=== PATIENT | female | born 1990 | race Caucasian/White ===

== ENCOUNTER 2018-03-12 05:33 | Day surgery (SDC) | payer BC ==
[2018-03-05 12:13] LABS: HEMATOCRIT 40.7 % (36.0-47.0); HEMOGLOBIN 13.5 g/dL (12.0-15.5); MEAN CORPUSCULAR HEMOGLOBIN 28.5 pg (27.0-33.4); MEAN CORPUSCULAR HGB CONC 33.2 g/dL (32.0-36.0); MEAN CORPUSCULAR VOLUME 86 fl (80-97); PLATELET COUNT 202 10^3/uL (150-450); RED BLOOD COUNT 4.74 10^6/uL (3.72-5.28); RED CELL DISTRIBUTION WIDTH 14.5 % (11.5-14.0); WHITE BLOOD COUNT 8.2 10^3/uL (4.0-10.5)
[~2018-03-12 05:33] MED LIST: ACETAMINOPHEN 325 MG TABLET PO PRN; LACTATED RINGERS 1000 ML IV PRN; LIDOCAINE 0.5% INJ-PF (5 MG/ML) 50 ML SDV SUBCUT PRN; VANCOMYCIN HCL 1,000 MG in DEXTROSE 5%-WATER 250 ML IV PRN
[2018-03-12] MEDS ORDERED: FENTANYL CITRATE INJ/PF 250 MCG/5 ML AMPULE ONE (06:36)
[2018-03-12] MEDS ORDERED: LIDOCAINE 2% INJ-PF (20 MG/ML) 10 ML AMPUL ONE (06:36)
[2018-03-12] MEDS ORDERED: ACETAMINOPHEN 1,000 MG/100 ML RTUPB IV ONE (06:37)
[2018-03-12] MEDS ORDERED: PROPOFOL INJ 200 MG/20 ML VIAL IV ONE (06:37)
[2018-03-12] MEDS ORDERED: MIDAZOLAM 2 MG/2 ML INJ ONE (06:37)
[2018-03-12] MEDS ORDERED: BUPIVACAINE HCL 0.5 % INJ/PF 30 ML SDV ONE (06:51)
[2018-03-12] MEDS ORDERED: SCOPOLAMINE HYDROBROMIDE 1.5 MG PATCH.TD72 ONE (07:07)
[2018-03-12] MEDS ORDERED: FAMOTIDINE INJ/PF 20 MG/2 ML SDV IV ONE (07:08)
[2018-03-12] MEDS ORDERED: PROMETHAZINE HCL INJ 25 MG/1 ML VIAL ONE (07:33)
[2018-03-12] MEDS ORDERED: FENTANYL CITRATE INJ/PF 100 MCG/2 ML AMPUL IV PRN ×2 (08:12)
[2018-03-12] MEDS ORDERED: DIPHENHYDRAMINE HCL 50 MG/ML VIAL IV PRN (08:12)
[2018-03-12] MEDS ORDERED: MEPERIDINE HCL/PF INJ 25 MG/1 ML DISP.SYRIN IV PRN (08:12)
[2018-03-12] MEDS ORDERED: PROMETHAZINE HCL INJ 25 MG/1 ML VIAL IV PRN ×2 (08:12)
[2018-03-12] MEDS ORDERED: MORPHINE SULFATE 10 MG/ML INJ IV PRN (08:12)
[2018-03-12] MEDS ORDERED: DEXAMETHASONE SOD PHOSPHATE INJ 4 MG/1 ML VIAL ONE (09:32)
[2018-03-12] MEDS ORDERED: ONDANSETRON HCL INJ/PF 4 MG/2 ML SDV ONE (09:32)
[2018-03-12] MEDS ORDERED: ROCURONIUM BROMIDE INJ 50 MG/5 ML VIAL IV ONE (09:32)
[2018-03-12] MEDS ORDERED: FENTANYL CITRATE INJ/PF 100 MCG/2 ML AMPUL ONE ×2 (09:33→10:20)
--- NOTE | 2018-03-12 10:10 | Discharge Summary ---
Discharge Summary (SDC) - Discharge Final Diagnosis: umbilical hernia Date of Surgery: 03/12/18 Discharge Date: 03/12/18 Condition: Stable Treatment or Instructions: Discharge home, diet as tolerated, activity: No lifting greater than 10 pounds 6 weeks. Follow-up with me in 7-10 days. [place] 10/325 mg p.o. every 6 hours as needed pain. Okay to shower on Thursday. No tub baths or swimming pools 2 weeks. Referrals: TITA PERKINS PA-C [Primary Care Provider] - Discharge Diet: As Tolerated Respiratory Treatments at Home: Deep Breathing/Coughing, Incentive Spirometer Discharge Activity: No Lifting Over 10 Pounds Home Care Assistance: None Needed Report the Following to Your Physician Immediately: Shortness of Breath, Nausea , Vomiting, Yellow Skin, Fever over 101 Degrees, Unusual Bleeding, Redness, Swelling, Warmth
--- NOTE | 2018-03-12 10:18 | Operative Report ---
Nonrecallable Operative Report DATE OF SURGERY: 03/12/18 PREOPERATIVE DIAGNOSIS: 1. Symptomatic umbilical hernia. 2. Diastases recti. POSTOPERATIVE DIAGNOSIS: Same as above OPERATION: 1. Robot-assisted laparoscopic umbilical hernia repair with mesh. 2. Robot-assisted laparoscopic plication of diastases recti. SURGEON: JAMEL GARCIA ANESTHESIA: GA TISSUE REMOVED OR ALTERED: None COMPLICATIONS: None apparent ESTIMATED BLOOD LOSS: Minimal PROCEDURE: Drains/implants: 10 x [address] hernia mesh with EPS. Procedure in detail: After informed consent was obtained, the patient was brought to the operating room and laid in the supine position. The area of the abdomen was prepped and draped in a normal sterile fashion. A left upper quadrant incision was created. The 5 mm trocar and 5 mm camera were introduced into the abdominal cavity under direct laparoscopic visualization using the Optiview technique. Once this was completed a 12 mm left lateral trocar was placed, as well as an 8 mm left lower quadrant robotic trocar. The left upper quadrant 5 mm trocar was then replaced for an 8 mm robotic trocar. The robot was then brought over the patient and docked appropriately. The umbilical hernia defect was brought into view. There was incarcerated omentum within the hernia defect. This was taken down using sharp dissection and electrocautery. Once this was completed, the abdomen was surveyed. The patient had a large diastases recti. Secondary to this plication of the diastases recti was performed to facilitate hernia repair. #1 nonabsorbable V lock suture was used to plicate the patient's diastases, as well as close the umbilical hernia defect. This was done 2 with one suture starting superiorly and run inferiorly , and another suture started inferiorly and run superiorly. Once this was complete, the 10 x 15 cm ventral light hernia mesh was placed into the abdomen and apposed to the anterior abdominal wall. It was sutured into place using 2- 0 nonabsorbable V lock suture in simple running fashion. The robot was then undocked, and attention was turned to closure of the trocar sites. The 8 mm trocar sites were closed using 0 Vicryl suture in simple interrupted fashion the assistance of the Endo Close device. Trochars were then removed, and pneumoperitoneum was relieved. The 12 mm trocar site was closed under direct vision using 0 Vicryl suture in [id number] fashion. The overlying skin was closed using 4-0 Vicryl Rapide suture in subcuticular fashion. Dressings were placed, and the procedure was concluded. All sponge, instrument , and needle counts were correct 2. Condition: Stable.
[2018-03-12] MEDS: FENTANYL CITRATE INJ/PF 100 MCG/2 ML AMPUL IV PRN ×2 (10:30→10:32)
[2018-03-12] MEDS ORDERED: KETOROLAC TROMETHAMINE INJ/PF 30 MG/1 ML SDV ONE (10:44)
[2018-03-12] MEDS ORDERED: HYDROCODONE/ACETAMINOPHEN 10-325 MG TABLET PO PRN (10:58)
[2018-03-12] MEDS ORDERED: LORAZEPAM INJ 2 MG/1 ML VIAL ONE (11:03)
[2018-03-12] MEDS ORDERED: HYDROCODONE/ACETAMINOPHEN 10-325 MG TABLET ONE (12:03)
[2018-03-12] MEDS ORDERED: HYDROCODONE/ACETAMINOPHEN 5-325 MG (6 TAB/ER DISP) PO ONE (12:10)
[2018-03-12 12:52] VITALS: BP 130/78
== END 2018-03-12 13:20 | disposition home or self-care (01) ==
LOC: OROUT 05:33
PROVIDERS: ATTEND Surgery
DX: K42.0 Umbilical hernia with obstruction, without gangrene (principal); G43.909 Migraine, unspecified, not intractable, without status migrainosus; K46.9 Unspecified abdominal hernia without obstruction or gangrene; M62.08 Separation of muscle (nontraumatic), other site; Z88.0 Allergy status to penicillin
CPT/HCPCS: 49653; 49999; S2900; 36415; 750; 81025; 85027; 86850; 86900; 86901; C1781; J0131; J1100; J1885; J2060; J2250; J2405; J2550; J2704; J3010; J3370; J3490; J7060; S0028

== ENCOUNTER 2019-05-23 07:46 | Day surgery (SDC) | payer BC ==
[2019-05-20 10:48] LABS: ABSOLUTE EOSINOPHILS # (AUTO) 0.1 10^3/uL (0.0-0.6); ABSOLUTE LYMPHOCYTES (AUTO) 1.7 10^3/uL (0.5-4.7); ABSOLUTE MONOCYTES (AUTO) 0.6 10^3/uL (0.1-1.4); ABSOLUTE NEUT (AUTO) 3.6 10^3/uL (1.7-8.2); BASOPHILS % (AUTO) 0.4 % (0-2); EOSINOPHILS % (AUTO) 1.4 % (0-6); HEMATOCRIT 40.2 % (36.0-47.0); HEMOGLOBIN 13.2 g/dL (12.0-15.5); LYMPHOCYTES % (AUTO) 28.3 % (13-45); MEAN CORPUSCULAR HEMOGLOBIN 28.4 pg (27.0-33.4); MEAN CORPUSCULAR HGB CONC 32.9 g/dL (32.0-36.0); MEAN CORPUSCULAR VOLUME 86 fl (80-97); MONOCYTES % (AUTO) 9.4 % (3-13); PLATELET COUNT 211 10^3/uL (150-450); RED BLOOD COUNT 4.65 10^6/uL (3.72-5.28); RED CELL DISTRIBUTION WIDTH 13.7 % (11.5-14.0); SEGMENTED NEUTROPHILS % (AUTO) 60.5 % (42-78); TOTAL CELLS COUNTED % (AUTO) 100 %; WHITE BLOOD COUNT 5.9 10^3/uL (4.0-10.5)
[2019-05-20 10:55] LABS: APPEARANCE,URINE SLIGHTLY-CLOUDY; BILIRUBIN,URINE NEGATIVE (NEGATIVE); COLOR,URINE YELLOW; GLUCOSE, URINE NEGATIVE (NEGATIVE); KETONES,URINE NEGATIVE (NEGATIVE); LEUKOCYTE ESTERASE,URINE NEGATIVE (NEGATIVE); NITRITE,URINE NEGATIVE (NEGATIVE); PROTEIN,URINE NEGATIVE (NEGATIVE); URINE SPECIFIC GRAVITY 1.006; UROBILINOGEN,URINE NEGATIVE mg/dL (<2.0)
[2019-05-20 11:12] LABS: ANION GAP 9 (5-19); BLOOD UREA NITROGEN 11 mg/dL (7-20); CALCIUM 9.5 mg/dL (8.4-10.2); CARBON DIOXIDE 27 mmol/L (22-30); CHLORIDE 105 mmol/L (98-107); GLUCOSE 82 mg/dL (75-110); POTASSIUM 4.3 mmol/L (3.6-5.0)
[~2019-05-23 07:46] MED LIST changes: -ACETAMINOPHEN 325 MG TABLET PO PRN; -LIDOCAINE 0.5% INJ-PF (5 MG/ML) 50 ML SDV SUBCUT PRN; -VANCOMYCIN HCL 1,000 MG in DEXTROSE 5%-WATER 250 ML IV PRN
[2019-05-23] MEDS ORDERED: FENTANYL CITRATE INJ/PF 100 MCG/2 ML AMPUL ONE ×2 (09:13→10:28)
[2019-05-23] MEDS ORDERED: MIDAZOLAM 2 MG/2 ML INJ ONE (09:13)
[2019-05-23] MEDS ORDERED: PROPOFOL INJ 200 MG/20 ML VIAL IV ONE (09:13)
[2019-05-23] MEDS ORDERED: DIPHENHYDRAMINE HCL 50 MG/ML VIAL IV PRN (09:56)
[2019-05-23] MEDS ORDERED: MEPERIDINE HCL/PF INJ 25 MG/1 ML DISP.SYRIN IV PRN (09:56)
[2019-05-23] MEDS ORDERED: OXYCODONE-ACETAMINOPHEN 5-325 MG TABLET PO PRN ×4 (09:56→10:19)
[2019-05-23] MEDS ORDERED: FENTANYL CITRATE INJ/PF 100 MCG/2 ML AMPUL IV PRN ×3 (09:56)
[2019-05-23] MEDS ORDERED: PROMETHAZINE HCL INJ 25 MG/1 ML VIAL IV PRN ×2 (09:56)
[2019-05-23] MEDS ORDERED: RINGERS SOLUTION,LACTATED 1,000 ML IV PRN (10:19)
[2019-05-23] MEDS ORDERED: KETOROLAC TROMETHAMINE INJ/PF 30 MG/1 ML SDV IV PRN (10:19)
[2019-05-23] MEDS ORDERED: IBUPROFEN 800 MG TABLET PO PRN (10:19)
--- NOTE | 2019-05-23 10:22 | Operative Report ---
Operative Report DATE OF SURGERY: 05/23/19 PREOPERATIVE DIAGNOSIS: Patient desires endometrial ablation for heavy menses POSTOPERATIVE DIAGNOSIS: Same OPERATION: Hysteroscopy D&C endometrial ablation SURGEON: OLGA OLIVA ANESTHESIA: GA TISSUE REMOVED OR ALTERED: Uterine contents COMPLICATIONS: None ESTIMATED BLOOD LOSS: 10 cc INTRAOPERATIVE FINDINGS: Empty uterine cavity PROCEDURE: Patient was taken the OR and placed in supine position. General anesthesia was induced. She is placed in a dorsolithotomy position using Saran stirrups. Her bladder was drained with a red rubber catheter. A speculum was placed in the vagina and the anterior lip cervix grasped with tenaculum. Uterus was sounded to 8 cm before and after the case. The cervix was gently dilated. Hysteroscope was inserted and a large amount of bleeding endometrium was noted. Endocervical and endometrial curettings were obtained. The NovaSure ablation was then carried out with a length of 5 cm in width of 3.5 cm. After the ablation repeat hysteroscopy showed a well ablated uterine cavity. All instruments were removed she is placed back in supine position taken recovery room in stable condition.
--- NOTE | 2019-05-23 10:26 | Discharge Summary ---
Discharge Summary (SDC) - Discharge Final Diagnosis: Menorrhagia Date of Surgery: 05/23/19 Discharge Date: 05/23/19 Condition: Good Prescriptions: Oxycodone HCl/Acetaminophen [Percocet 5-325 mg Tablet] 1 tab PO Q4HP PRN #20 tablet PRN Reason: Referrals: OLGA OLIVA MD [Primary Care Provider] - Discharge Diet: Regular Discharge Activity: Activity As Tolerated, Pelvic Rest Report the Following to Your Physician Immediately: Fever over 101 Degrees, Unusual Bleeding
[2019-05-23] MEDS ORDERED: KETOROLAC TROMETHAMINE INJ/PF 30 MG/1 ML SDV ONE (10:38)
[2019-05-23] MEDS ORDERED: IBUPROFEN 800 MG TABLET ONE (10:38)
[2019-05-23 12:28] VITALS: BP 117/85
== END 2019-05-23 12:25 | disposition home or self-care (01) ==
LOC: OROUT 07:46
PROVIDERS: ATTEND Obstetrics & Gynecology
DX: N92.0 Excessive and frequent menstruation with regular cycle (principal)
CPT/HCPCS: 36415; 85025; 81025; 80048; 81001; 88305 ×2; 58563; J2250; J3010; J1885; J2704; 952